=== PATIENT | male | born 1975 | race Caucasian/White ===

== ENCOUNTER → 2017-03-06 | Outpatient (CLI) | payer BC ==
--- NOTE | 2017-03-06 23:06 | CONS ---
CONSULTATION DATE OF SERVICE: 03/06/2017 This patient is a 41-year-old gentleman who has been evaluated in the sleep center for obstructive sleep apnea-hypopnea syndrome. HISTORY OF PRESENT ILLNESS/SLEEP-WAKE EVALUATION: Patient's usual sleep schedule on working days is from 9 p.m. to 3 a.m., on weekends from around 8 or 10 p.m. to 5 or 7 a.m. No problems with falling asleep. No TV in bedroom. Patient sleeps during the night in different positions. He snores. He has witnessed episodes by his of stopped breathing. He wakes up from sleep gasping for air totally up to 6 times at night and with 1 to 2 episodes of nocturia at night. No history of hypnopompic hallucinations, sleep paralysis or cataplexy. During the day patient may feel sleepy. [place] Sleepiness Scale is increased at 10. PAST MEDICAL HISTORY: 1. Hyperlipidemia. 2. Acid reflux. 3. Episodes of increasing blood pressure in the office. PAST SURGICAL HISTORY: Left elbow surgery. MEDICATIONS: 1. Pantoprazole. 2. Simvastatin. SOCIAL HISTORY: Negative for smoking. Alcohol consumption occasional. FAMILY HISTORY: Hypertension, hyperlipidemia, emphysema, sleep apnea, snoring, cancer, diabetes, acid reflux. REVIEW OF SYSTEMS: Multiple awakenings from sleep, sleepiness during the day. PHYSICAL EXAMINATION: gentleman without distress. VITAL SIGNS: BP 133/88, HR 78, RR 16, height 5 feet 9 inches, weight 229, BMI 33.8. Neck 16-1/2 inches in circumference. Temperature 98.1. Oxygen saturation at room air 98%. HEENT: PERRLA, EOMI. Evaluation of oropharynx showed tongue protrudes midline; extremely low position of soft palate. Mallampati 4. Slightly asymmetric. Possible nasal septum deviation. NECK: Supple. No JVD. Thyroid is not palpable. LUNGS: Clear to percussion and to auscultation. Good air exchange. No wheezing or rhonchi. HEART: S1, S2 regular. No murmurs, gallops or rubs. ABDOMEN: Obese. Soft and nontender. Bowel sounds are present. No organomegaly appreciated. EXTREMITIES : No clubbing or cyanosis. DIRECTOR OF PHOTOGRAPHY: Awake, alert, and oriented X3. Cranial nerves 2 to 7 intact. There is no fasciculation or atrophy. noted. No focal deficits observed. IMPRESSION: 1. Snoring, witnessed episodes of stopped breathing during sleep, extremely low position of soft palate, multiple awakenings from sleep, wide neck, excessive sleepiness; obstructive sleep apnea-hypopnea syndrome. 2. Mild obesity with body mass index of 33.8. 3. Hyperlipidemia. 4. Acid reflux. 5. Episodes of increasing blood pressure in the office now. 6. Status post left elbow surgery. 7. History of nasal trauma in child for possible nasal septum deviation. 8. Status post left elbow surgery. 9. History of nasal trauma in childhood; possible nasal septum deviation. PLAN: 1. Polysomnography for evaluation of patient's breathing during sleep. 2. CPAP/BiPAP titration if sleep study confirms obstructive sleep apnea-hypopnea syndrome. 3. Preferable position during sleep on the side. 4. No driving if patient feels any sleepiness. Patient is aware of civil and criminal liability for unsafe driving. 5. I will see patient for follow up visit to explain results of testing and following plan. Thank you very much for referring this patient for consultation. Sincerely, Evelio Mora MD, PhD, FAASM Diplomat of [employer] Regional Clinical Director of [facility] [place] MMODL / IJN: [id number] /
== END | disposition home or self-care (01) ==
LOC: SLEEP 13:21
PROVIDERS: ATTEND Internal Medicine
DX: G47.33 Obstructive sleep apnea (adult) (pediatric) (principal); E66.9 Obesity, unspecified; R03.0 Elevated blood-pressure reading, without diagnosis of hypertension; E78.5 Hyperlipidemia, unspecified; K21.9 Gastro-esophageal reflux disease without esophagitis; Z68.33 Body mass index [BMI] 33.0-33.9, adult; Z98.890 Other specified postprocedural states; Z87.828 Personal history of other (healed) physical injury and trauma; Z79.899 Other long term (current) drug therapy
CPT/HCPCS: 99211

== ENCOUNTER → 2017-06-05 | Outpatient (CLI) | payer BC ==
--- NOTE | 2017-06-05 17:15 | PN ---
PROGRESS NOTE DATE OF SERVICE: 06/05/2017 41-year-old gentleman has been followed in Sleep Center for treatment of obstructive sleep apnea-hypopnea syndrome. Recently patient had a home sleep apnea test, which showed the patient has obstructive sleep apnea with apnea-hypopnea index 14.4 and oxygen saturation of 87%. I discussed results of the sleep study with the patient in details. Subsequently the patient was started on treatment with CPAP and today his first visit on his CPAP unit. I checked reading from his machine usage is 100% of the time more than 4 hours. Average usage is 6 hours 45 minutes. Pressure in the range between 7.4 and 11.1. Apnea-hypopnea index reading is only 1.6 for the last months, the patient significantly improved feelings during the day. No significant excessive daytime sleepiness as it was present before. [place] Sleepiness Scale today is 3. MEDICATIONS: For cholesterol and acid reflux. PHYSICAL EXAM: Patient in no distress BP 134/95, HR 65, RR 16, weight 236.2, temperature 98.2, oxygen saturation room air 98%. The oropharynx extremely low position of soft palate. Abdomen slightly obese. Neck Supple, no JVD. Thyroid is not palpable. LUNGS Clear to percussion and to auscultation. Good air exchange. No wheezing or rhonchi. HEART S1, S2 regular. No murmurs, gallops, or rubs. ABDOMEN: Slightly obese. Soft and nontender. Bowel sounds are present. No organomegaly appreciated. EXTREMITIES No clubbing or cyanosis. TOOLSMITH Awake, alert, and oriented X3. Cranial nerves 2 to 7 intact. There is no fasciculation or atrophy. noted. No focal deficits observed. IMPRESSION: 1. Obstructive sleep apnea-hypopnea syndrome on a full control with auto PAP. The patient demonstrated 100% compliance with treatment benefitting from treatment. The patient improved his alertness after he was started on treatment with CPAP. 2. Hyperlipidemia. 3. Episodes of increasing blood pressure in the office. 4. Mild obesity. PLAN: 1. Patient will continue to use CPAP equipment every night for the whole night. 2. Losing weight. 3. Sleep hygiene with regular time in bed for at least 8 hours. 4. No driving if feeling sleepiness. 5. Monitoring of blood pressure. If still tendency for increasing blood pressure, low- sodium diet. The patient will discuss that issue with the primary care physician also. 6. Follow up visit in 10 months. Thank you very much for allowing me to participate in management of your patient. Sincerely, Evelio Mora MD, PhD, FAASM Diplomat of [employer] [employer] Migration Agent of [facility] [place] SONIA / BELEN: [id number] /
== END | disposition home or self-care (01) ==
LOC: SLEEP 16:03
PROVIDERS: ATTEND Internal Medicine
DX: G47.33 Obstructive sleep apnea (adult) (pediatric) (principal); E78.5 Hyperlipidemia, unspecified; E66.9 Obesity, unspecified; R03.0 Elevated blood-pressure reading, without diagnosis of hypertension; Z99.89 Dependence on other enabling machines and devices

== ENCOUNTER → 2018-08-06 | Outpatient (CLI) | payer BC ==
--- NOTE | 2018-08-06 20:11 | PN ---
PROGRESS NOTE DATE OF SERVICE: 08/06/2018 This patient is a 42-year-old gentleman who has been followed in Sleep Center for treatment of obstructive sleep apnea-hypopnea syndrome. The patient continues to use his CPAP equipment every night for the whole night without significant problems. Today he is feeling sleepy. [place] Sleepiness Scale is 11, but he had to wake up today at 3 a.m. I checked his CPAP unit. Range of pressure is 5-20, average pressure 10.1. Usage is 28/30 nights for more than 4 hours. Average usage 5.6 hours. Leak is only 2 L/minute. Apnea-hypopnea index is 0.9, which is perfect. MEDICATIONS: 1. Pantoprazole. 2. Simvastatin. 3. Atenolol. PHYSICAL EXAMINATION: GENERAL: A pleasant patient in no distress. VITAL SIGNS: BP 127/86, HR 74, RR 16, height 5 feet 8 inches, weight 232.8 pounds, body mass index 35.2, oxygen saturation at room air 97%. HEENT: PERRLA, EOMI. Evaluation of oropharynx showed tongue protrudes midline. Extremely low position of soft palate. Mallampati IV. NECK: Supple. No JVD. Thyroid is not palpable. LUNGS: Clear to percussion and to auscultation. Good air exchange. No wheezing or rhonchi. HEART: S1, S2 regular. No murmurs, gallops or rubs. ABDOMEN: Slightly obese. EXTREMITIES: No clubbing or cyanosis. SORTER LUMBER STRAIGHTENER: Awake, alert, and oriented X3. Cranial nerves 2 to 7 intact. There is no fasciculation or atrophy. noted. No focal deficits observed. IMPRESSION: 1. Obstructive sleep apnea-hypopnea syndrome. Patient demonstrated great compliance with treatment, benefitting from treatment. 2. Hypertension. Blood pressure in normal range on treatment with metoprolol. 3. Hyperlipidemia. 4. Mild obesity. Patient has lost 4 pounds compared to his visit one year ago. PLAN: 1. Patient will continue to use CPAP equipment every night for the whole night. 2. Continue losing weight. 3. Sleep hygiene with regular time in bed for at least 8 hours. 4. No driving if feeling any sleepiness. 5. We will maintain all necessary prescriptions for CPAP supplies, including mask, heated tube, filters. 6. Follow-up visit in one year, or earlier if patient has any problems. Thank you very much for allowing me to participate in the management of your patient. Sincerely, Evelio Mora MD, PhD, FAASM Diplomat of [employer] Notcher of [facility] [place] MMGLENNY / BELEN: [id number] /
== END ==
LOC: SLEEP 12:13
PROVIDERS: ATTEND Internal Medicine
DX: G47.33 Obstructive sleep apnea (adult) (pediatric) (principal); I10 Essential (primary) hypertension; E78.5 Hyperlipidemia, unspecified; E66.9 Obesity, unspecified; Z99.89 Dependence on other enabling machines and devices; Z68.35 Body mass index [BMI] 35.0-35.9, adult; Z79.899 Other long term (current) drug therapy